=== PATIENT | female | born 1965 | race Caucasian/White ===

== ENCOUNTER 2016-05-30 18:39 | Emergency (ER) | payer OTHER ==
[2016-05-30] MEDS ORDERED: ASPIRIN 81 MG TABLET, CHEWABLE PO ONE (18:56)
--- NOTE | 2016-05-30 18:58 | ER Document Report ---
ED Medical Screen (RME) - General Stated Complaint: HEAD PAIN/BLOOD PRESSURE ISSUE Mode of Arrival: Ambulatory Information source: Patient Notes: She presents to the emergency department with abdominal pain high blood pressure and headache. Denies chest pain. She reports she had the school nurse took her blood pressure and said she had high blood pressure. Went to her primary care provider who did an EKG told her to come to the emergency department. Reports headache yesterday and today. Reports she has a lot of sinus pressure. No history of high blood pressure. EKG sinus rhythm reports stomach burning. pt reports family history of CAD. I have greeted and performed a rapid initial assessment of this patient. A comprehensive ED assessment and evaluation of the patient, analysis of test results and completion of the medical decision making process will be conducted by additional ED providers. Physical Exam - Vital signs Vitals: Temp Pulse Resp BP Pulse Ox 97.9 F 75 18 183/98 H 99 05/30/16 18:43 05/30/16 18:43 05/30/16 18:43 05/30/16 18:43 05/30/16 18:43 Course - Vital Signs Vital signs: Temp Pulse Resp BP Pulse Ox 97.9 F 75 18 183/98 H 99 05/30/16 18:43 05/30/16 18:43 05/30/16 18:43 05/30/16 18:43 05/30/16 18:43
[2016-05-30 19:17] LABS: APPEARANCE,URINE CLEAR; BILIRUBIN,URINE NEGATIVE (NEGATIVE); GLUCOSE, URINE NEGATIVE (NEGATIVE); KETONES,URINE NEGATIVE (NEGATIVE); LEUKOCYTE ESTERASE,URINE NEGATIVE (NEGATIVE); NITRITE,URINE NEGATIVE (NEGATIVE); PROTEIN,URINE NEGATIVE (NEGATIVE); URINE SPECIFIC GRAVITY 1.003; UROBILINOGEN,URINE NEGATIVE mg/dL (<2.0)
--- NOTE | 2016-05-30 19:24 | EKG REPORT ---
SEVERITY:- OTHERWISE NORMAL ECG - SINUS RHYTHM ATRIAL PREMATURE COMPLEX : Confirmed by: Becky Pearl MD 30-May-2016 19:23:28
[2016-05-30 19:32] LABS: ABSOLUTE BASOPHILS # (AUTO) 0.1 10^3/uL (0.0-0.2); ABSOLUTE EOSINOPHILS # (AUTO) 0.1 10^3/uL (0.0-0.6); ABSOLUTE LYMPHOCYTES (AUTO) 1.7 10^3/uL (0.5-4.7); ABSOLUTE MONOCYTES (AUTO) 0.7 10^3/uL (0.1-1.4); ABSOLUTE NEUT (AUTO) 4.4 10^3/uL (1.7-8.2); EOSINOPHILS % (AUTO) 1.1 % (0-6); HEMATOCRIT 39.1 % (36.0-47.0); HEMOGLOBIN 12.7 g/dL (12.0-15.5); LYMPHOCYTES % (AUTO) 24.3 % (13-45); MEAN CORPUSCULAR HEMOGLOBIN 30.3 pg (27.0-33.4); MEAN CORPUSCULAR HGB CONC 32.6 g/dL (32.0-36.0); MEAN CORPUSCULAR VOLUME 93 fl (80-97); MONOCYTES % (AUTO) 9.9 % (3-13); RED CELL DISTRIBUTION WIDTH 14.4 % (11.5-14.0); SEGMENTED NEUTROPHILS % (AUTO) 63.7 % (42-78)
[2016-05-30 19:46] LABS: ALANINE AMINOTRANSFERASE 30 U/L (9-52); ALBUMIN 4.6 g/dL (3.5-5.0); ALKALINE PHOSPHATASE 59 U/L (38-126); ANION GAP 10 (5-19); ASPARTATE AMINO TRANSFERASE 23 U/L (14-36); BILIRUBIN,TOTAL 0.6 mg/dL (0.2-1.3); BLOOD UREA NITROGEN 12 mg/dL (7-20); CALCIUM 9.8 mg/dL (8.4-10.2); CARBON DIOXIDE 26 mmol/L (22-30); CHLORIDE 104 mmol/L (98-107); CREATINE KINASE 88 U/L (30-135); CREATININE RESULT 0.85 mg/dL (0.52-1.25); GLUCOSE 86 mg/dL (75-110); POTASSIUM 3.9 mmol/L (3.6-5.0); SODIUM 140.3 mmol/L (137-145); TOTAL PROTEIN 7.8 g/dL (6.3-8.2)
[2016-05-30 19:58] LABS: CREATINE KINASE MB 0.93 ng/mL (<4.55)
[2016-05-30 19:59] LABS: TROPONIN I < 0.012 ng/mL
--- NOTE | 2016-05-30 21:06 | ER Document Report ---
ED General - General Chief Complaint: Headache Stated Complaint: HEAD PAIN/BLOOD PRESSURE ISSUE Mode of Arrival: Ambulatory Notes: This is a 50-year-old female who presents complaining of elevated blood pressure today. She states she just was feeling off this morning with some slight epigastric burning. She tried taking a Zantac without relief. She states she was also having headache but more mild than her normal chronic daily headache that she's had for years. She states that she went to get her blood pressure checked at the school nurse's office and it was elevated. She checked on again later and was still higher so she went to her primary care office and saw Caterina De Dios NP. Patient was referred to the ER for further evaluation because of a possible abnormality on the EKG. Patient states she's unsure why her blood pressure is elevated today as she has no history of hypertension. She 's had no visual changes. She states she has been having daily headaches for 2 years but has had "every test known to man" including CT, MRI etc. She states she was diagnosed with allergy and sinus problems. She has felt as if maybe she is coming down with sinus issue again is she's been a little bit more congested than normal. No fever. No neck stiffness or pain. No rash. She's had no focal numbness, weakness or tingling. No ataxia reported. Again, she states her normal headache is much worse than her headache today. She also complains of aggravation at work with a boss who is giving her problems. Her suggests that she's been under increased stress recently. TRAVEL OUTSIDE OF THE [place] IN LAST 30 DAYS: No Past Medical History - General Information source: Patient - Social History Smoking Status: Never Smoker Chew tobacco use (# tins/day): No Frequency of alcohol use: Occasional Drug Abuse: None Family History: Reviewed & Not Pertinent Patient has suicidal ideation: No Patient has homicidal ideation: No Neurological Medical History: Reports: Hx Migraine Renal/ Medical History: Denies: Hx Peritoneal Dialysis Surgical Hx: Negative Review of Systems - Review of Systems Constitutional: denies: Fever EENT: denies: Blurred vision, Double vision Cardiovascular: denies: Syncope Respiratory: denies: Cough, Short of breath Gastrointestinal: Abdominal pain. denies: Vomiting Genitourinary: denies: Flank pain Musculoskeletal: denies: Leg swelling Skin: denies: Rash Hematologic/Lymphatic: denies: Swollen glands Neurological/Psychological: Headaches. denies: Weakness, Seizure, Lost consciousness, Numbness, Tingling Physical Exam - Vital signs Vitals: Temp Pulse Resp BP Pulse Ox 97.9 F 75 18 183/98 H 99 05/30/16 18:43 05/30/16 18:43 05/30/16 18:43 05/30/16 18:43 05/30/16 18:43 - Notes Notes: GENERAL: Well-appearing, well-nourished and in no acute distress. HEAD: Atraumatic, normocephalic. EYES: Pupils equal round and reactive to light, extraocular movements intact, sclera anicteric, conjunctiva are normal. ENT: nares patent, oropharynx clear without exudates. Moist mucous membranes. NECK: Normal range of motion, supple without lymphadenopathy or JVD. LUNGS: Breath sounds clear to auscultation bilaterally and equal. No wheezes rales or rhonchi. HEART: Regular rate and rhythm without murmurs, rubs or gallops. ABDOMEN: Soft, nontender, normoactive bowel sounds. No guarding, no rebound. No masses appreciated. EXTREMITIES: Normal range of motion, no pitting or edema. No clubbing or cyanosis. NEUROLOGICAL: Cranial nerves II through XII grossly intact. Normal speech, normal gait. PSYCH: Normal mood, normal affect. SKIN: Warm, Dry, normal turgor, no rashes or lesions noted. Course - Re-evaluation Re-evalutation: 05/30/16 22:07 Patient is extremely well-appearing and presents with her first episode of elevated blood pressure. She does have associated headache but the headache has preceded the onset of high blood pressure by about 2 years. She states she' s had headache every day for 2 years and has been thoroughly evaluated for this. There are no neurologic findings today. I do not suspect intracranial hemorrhage, aneurysm, meningitis, normal pressure hydrocephalus, acute glaucoma. She has also complained of some epigastric burning discomfort associated with acid reflux. I do not suspect acute cardiac ischemia based on her normal-appearing EKG and enzymes, atypical sounding discomfort and low risk profile. - Vital Signs Vital signs: Temp Pulse Resp BP Pulse Ox 97.9 F 90 16 171/92 H 100 05/30/16 22:25 05/30/16 22:25 05/30/16 22:25 05/30/16 22:25 05/30/16 22:25 - Laboratory Result Diagrams: 05/30/16 19:00 05/30/16 19:00 Laboratory results interpreted by me: 05/30/16 19:00 RDW 14.4 H - EKG Interpretation by Me EKG shows normal: Sinus rhythm Rate: Normal Rhythm: NSR, APC's Discharge - Discharge Clinical Impression: GERD (gastroesophageal reflux disease) Hypertension Qualifiers: Hypertension type: essential hypertension Qualified Code(s): I10 - Essential ( primary) hypertension Headache Qualifiers: Headache type: tension-type Headache chronicity pattern: chronic headache Intractability: not intractable Qualified Code(s): G44.229 - Chronic tension- type headache, not intractable Condition: Stable Disposition: HOME, SELF-CARE Additional Instructions: Follow-up with your primary care physician for recheck on your blood pressure in 2-3 days. Return sooner if you're feeling severe headache, vomiting, chest pain, short of breath, numbness/weakness/tingling, visual changes or any new concerns. Forms: Elevated Blood Pressure Referrals: [Primary Care Provider] - Follow up as needed
[2016-05-30] MEDS ORDERED: CLONIDINE HCL 0.1 MG TABLET PO ONE (21:23)
[2016-05-30] MEDS ORDERED: FAMOTIDINE 20 MG TABLET PO ONE (21:23)
[2016-05-30 22:26] VITALS: BP 171/92
== END 2016-05-30 22:30 | disposition home or self-care (01) ==
LOC: ER 18:39
DX: G44.229 Chronic tension-type headache, not intractable (principal); K21.9 Gastro-esophageal reflux disease without esophagitis; I10 Essential (primary) hypertension
CPT/HCPCS: 36415; 71020; 80053; 81001; 82550; 82553; 84484; 85025; 93005; 93010; 99284